=== PATIENT | male | born 1980 | race Caucasian/White ===

== ENCOUNTER → 2019-11-13 | Outpatient (CLI) | payer BC ==
--- NOTE | 2019-11-13 15:57 | US ---
EXAMINATION TYPE: US scrotum with doppler. TECHNIQUE: Grayscale and color Doppler Duplex imaging performed of the scrotum. DATE OF EXAM: 11/13/2019 COMPARISON: NONE CLINICAL HISTORY: 39-year-old male R10.9 Unspecified abdominal pain. Left inguinal pain that radiates to testicles. FINDINGS: EXAM MEASUREMENTS: TESTICLES: Right Testicle: 4.7 x 2.0 x 3.2 cm Left Testicle: 4.5 x 2.2 x 2.9 cm Homogeneous appearance of the testicles without focal lesion. Satisfactory arterial and venous flow o n both sides. EPIDIDYMIS HEAD: Right Epididymis: 1.0 x 0.6 cm Left Epididymis: 1.2 x 0.8 cm Presence of hydroceles: none appreciated Presence of varicoceles: tubular structures that has increased color flow with valsalva lateral to l eft testicle. IMPRESSION: 1. No sonographic evidence for testicular torsion or epididymoorchitis. 2. No hydroceles. 3. Small varicocele along the lateral aspect of the left testicle.
--- NOTE | 2019-11-13 16:01 | US ---
EXAMINATION TYPE: US pelvic limited DATE OF EXAM: 11/13/2019 COMPARISON: NONE CLINICAL HISTORY: 39-year-old male R10.9 Unspecified abdominal pain. Left inguinal pain that radiates to testicle. TECHNIQUE: Multiple sonographic images of the pelvis and inguinal regions were obtained. FINDINGS: Bladder wnl, bilateral jets seen. Increased postvoid bladder volume of 37 mL still falls within accep table limits. No abnormal fluid collection in the right lower quadrant. No inducible left-sided inguinal hernia with Valsalva maneuver. IMPRESSION: 1. Valsalva maneuver shows no apparent left inguinal hernia. 2. Increased postvoid bladder volume of 37 mL still falls within acceptable limits.
== END | disposition home or self-care (01) ==
LOC: RADUSWWP 14:58
PROVIDERS: ATTEND Family Medicine
DX: I86.1 Scrotal varices (principal); N39.43 Post-void dribbling
CPT/HCPCS: 76857; 76870; 93975